=== PATIENT | female | born 1990 | race Caucasian/White ===

== ENCOUNTER 2016-08-28 18:19 | Emergency (ER) | payer SELFPAY ==
[~2016-08-28] VITALS: Ht 167.6 cm; Wt 117.3 kg
[~2016-08-28 18:19] MED LIST: ALBU1AER INH; MMW SSP
[2016-08-28 18:28] VITALS: BP 143/83; PULSE 89; RESP 16; TEMP 98.8; O2SAT 98
[2016-08-28] MEDS ORDERED: ALBUAER3 INH (18:45)
--- NOTE | 2016-08-28 19:19 | PD ---
HPI Chief Complaint: ENT Complaint Time Seen by Provider: 19:19 Travel History International Travel<30 days: No Contact w/Intl Traveler<30days: No Traveled to known affect area: No History of Present Illness HPI 26 year old female presents to the ED for evaluation of 3 day history of sore throat, malaise, sinus congestion, clear rhinorrhea, nonproductive cough. Gradual onset. She also complains of intermittent dizziness. She denies headache, vision changes, fever, ear pain, chest pain, abdominal pain, nausea, vomiting. She states that she has untreated asthma and is chronically short of breath. She denies known sick contacts but states that she recently encountered 1000 people over the course of the weekend for her job. Denies chronic health problems, takes no daily medications. NKDA. PFSH Past Medical History Asthma: Yes Tetanus Vaccination: < 5 Years Influenza Vaccination: No ?: Not LMP: 08/27/16 Past Surgical History Oral Surgery: Yes (wisdom teeth) Tonsillectomy: Yes Social History Alcohol Use: Yes (sociallly beer) Tobacco Use: Yes (1 ppd of cigs) Substance Use: No Allergies-Medications (Allergen,Severity, Reaction): Coded Allergies: No Known Allergies (Unverified , 08/28/16) Reported Meds & Prescriptions Reported Meds & Active Scripts Active Fluticasone Nasal [place] 50 Mcg/Act Naspr 50 Mcg EACH NARE BID 14 Days 50 mcg/spray Ventolin Hfa 18 GM Inh (Albuterol Sulfate) 90 Mcg/Act Aer 2 Puff INH Q4-6H PRN Amoxicillin 875 Mg Tab 875 Mg PO BID 10 Days Reported Proair Hfa 8.5 GM Inh (Albuterol Sulfate) 90 Mcg/Act Aer 1 Puff INH Q4H PRN 108 mcg/actuation Review of Systems Except as stated in HPI: all other systems reviewed are Neg Physical Exam Narrative GENERAL: Well-nourished, well-developed white female in no acute distress. SKIN: Warm and dry. Dark circles under the eyes. Tenderness to palpation of the facial sinuses. HEAD: Normocephalic. Atraumatic. EYES: No scleral icterus. No injection or drainage. PERRLA. EOMI. ENT: Pearly berger tympanic membranes bilaterally. Nasal mucosa is moist. Oropharynx with mild posterior erythema. No edema or exudate. Uvula midline. Airway patent. NECK: Supple, trachea midline. No JVD. Bilateral anterior cervical lymphadenopathy. CARDIOVASCULAR: Regular rate and rhythm without murmurs, gallops, or rubs. 2+ DP and radial pulses bilaterally. RESPIRATORY: Breath sounds clear and equal bilaterally. No accessory muscle use. GASTROINTESTINAL: Abdomen soft, non-tender, nondistended. + Bowel sounds MUSCULOSKELETAL: No cyanosis, or edema. Patient is ambulatory, moves extremities spontaneously. BACK: Nontender without obvious deformity. No CVA tenderness. Data Data Last Documented VS Vital Signs Date Time Temp Pulse Resp B/P Pulse Ox O2 Delivery O2 Flow Rate FiO2 08/28/16 18:40 16 08/28/16 18:28 98.8 89 143/83 98 Orders Group A Rapid Strep Screen (08/28/16 18:44) Strep Culture (Group A) (08/28/16 18:45) Amoxicillin (Trimox) (08/28/16 19:45) MDM Medical Decision Making Medical Screen Exam Complete: Yes Emergency Medical Condition: Yes Differential Diagnosis Pharyngitis versus strep pharyngitis versus sinusitis versus bronchitis versus viral syndrome versus other Narrative Course 26 year old female presents to the ED for evaluation of 3 day history of sore throat, malaise, sinus congestion, clear rhinorrhea, nonproductive cough. Gradual onset. She also complains of intermittent dizziness. She denies headache, vision changes, fever, ear pain, chest pain, abdominal pain, nausea, vomiting. She states that she has untreated asthma and is chronically short of breath. She denies known sick contacts. She is a current smoker. Vitals reviewed. Physical exam reveals a well-developed white female in no acute distress. She has dark circles under the eyes and tenderness to palpation of the facial sinuses. The posterior oropharynx is mildly erythematous without edema or exudate. Bilateral anterior cervical lymphadenopathy is also present. Physical exam otherwise unremarkable. Rapid strep swab negative. However, given the patient's presentation and physical exam I'll prescribe amoxicillin 875 twice a day 10 days. First dose administered in the ED. Patient was also prescribed prescription for fluticasone nasal prescription spray 1 spray per nostril daily 14 days. I also refilled her inhaler prescription. Patient's instructed take the medication as prescribed, take OTC medications for fever, sinus pain. She is instructed to consider adding a daily second-generation antihistamine to her medication regimen, follow up with her primary care provider or ear, nose and throat specialist. She indicated understanding of the instructions and is amenable to the plan of care. She is stable and discharged home. Diagnosis Primary Impression: Pharyngitis Qualified Code: J02.9 - Pharyngitis, unspecified etiology Referrals: Ear / Nose / Throat Specialist Patient Instructions: General Instructions, Pharyngitis (ED) Additional Instructions: Rest, hydrate. Take antibiotics as prescribed, even if her symptoms resolve. Consider adding a daily antihistamine (Josephine, Zyrtec, Claritin) to your daily medication routine. Ventolin inhaler needed for shortness of breath. Fluticasone nasal spray 1 spray in each nostril daily 14 days. Follow-up with the market research specialist or your primary care provider next week. Return to the ED for any urgent or emergent medical condition. Med/Other Pt SpecificInfo: Prescription(s) given Scripts Fluticasone Nasal [place] 50 Mcg/Act Naspr50 Mcg EACH NARE BID 14 Days Ref 0 50 mcg/spray Prov:Brigitte Salomon MD 08/28/16 Albuterol 18 GM Inh (Ventolin Hfa 18 GM Inh)90 Mcg/Act Aer2 Puff INH Q4-6H PRN ( SHORTNESS OF BREATH) #1 INHALER Ref 0 Prov:Brigitte Salomon MD 08/28/16 Amoxicillin 875 Mg Llm991 Mg PO BID 10 Days Ref 0 Prov:Brigitte Salomon MD 08/28/16 Disposition: 01 DISCHARGE HOME Condition: Stable [facility] Aug 28, 2016 19:19
[2016-08-28] MEDS ORDERED: AMOX875T PO (19:42)
[2016-08-28] MEDS ORDERED: FLUT50SP EACH NARE (19:42)
[2016-08-28] MEDS ORDERED: VENTAER INH (19:42)
[2016-08-28] MEDS ORDERED: AMOXICILLIN 875 MG TAB PO ONE (19:45)
== END 2016-08-28 20:06 | disposition home or self-care (01) ==
LOC: PHEFT 18:19
DX: J02.9 Acute pharyngitis, unspecified (principal); J45.909 Unspecified asthma, uncomplicated; F17.210 Nicotine dependence, cigarettes, uncomplicated
CPT/HCPCS: 87081; 87880; 99283